=== PATIENT | male | born 1955 | race Caucasian/White ===

== ENCOUNTER → 2017-09-21 | Outpatient (CLI) | payer OTHER | LOC: BMCIMAGING 07:16 | PROVIDERS: ATTEND Internal Medicine | DX: N50.3 Cyst of epididymis (principal); N43.3 Hydrocele, unspecified ==

== ENCOUNTER → 2018-07-26 | Outpatient (CLI) | payer OTHER | LOC: FIMAGING 07:28 | PROVIDERS: ATTEND Radiology Diagnostic Radiology | DX: I83.91 Asymptomatic varicose veins of right lower extremity (principal); S79.921A Unspecified injury of right thigh, initial encounter ==

== ENCOUNTER 2018-09-06 07:43 | Day surgery (SDC) | payer OTHER ==
[2018-09-06] MEDS ORDERED: ceFAZolin 2 GM/DEXTROSE 100 ML IV ONE (07:44)
[2018-09-06] MEDS ORDERED: ONDANSETRON 4 MG/2 ML VIAL IVP ONE (07:44)
[2018-09-06] MEDS ORDERED: MIDAZOLAM 2 MG/2 ML VIAL IVP PRN (07:44)
[2018-09-06] MEDS ORDERED: FLUMAZENIL 0.5 MG/5 ML MDV IVP PRN (07:44)
[2018-09-06] MEDS ORDERED: NS 1,000 ML IV ONE (07:44)
[2018-09-06] MEDS ORDERED: MEPERIDINE 25 MG/ML SYR IVP PRN (07:44)
[2018-09-06] MEDS ORDERED: fentaNYL 100 MCG/2 ML INJ IVP PRN (07:44)
[2018-09-06] MEDS ORDERED: NALOXONE HCL 0.4 MG/ML INJ IVP PRN (07:44)
[2018-09-06] MEDS ORDERED: LIDO/EPI 1% **for epidural** 30 ML SDV ONE (07:54)
[2018-09-06] MEDS ORDERED: SODIUM TETRADECYL SULFATE 3% 2 ML VIAL IV ONE (07:54)
[2018-09-06] MEDS ORDERED: NA BICARBONATE 50 MEQ/50 ML VIAL ONE (07:54)
--- NOTE | 2018-09-06 09:15 | PDPROPOC ---
Sedation Plan of Care Sedation Plan of Care: vital signs stable, mental status noted, patient educated of risks, benefits, alternatives, patient can tolerate sedation ASA Classification: ASA 1 Planned drugs: fentanyl, midazolam Mallampati Score: Class 1 Mallampati Reference Image: Patient passed 3-3-2 rule?: Yes
--- NOTE | 2018-09-06 09:15 | PDGENHP ---
History & Physical Chief Complaint: RT LE VARICOSE VEINS History of Present Illness: h/o previous trauma. 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 Pertinent Past, Social, Family History: hernia repair, knee surgery Relevant Physical Exam: bilateral inguinal scars. large ropey varicose veins mapped in RT LE. Cardiorespiratory Assessment: RRR, CTA
[2018-09-06] MEDS ORDERED: ONDANSETRON 4 MG/2 ML VIAL IVP PRN (10:42)
[2018-09-06] MEDS ORDERED: HYDROCODONE/APAP 5/325 TAB PO PRN (10:42)
[2018-09-06] MEDS ORDERED: ONDANSETRON DISINTEGRATING 4 MG TAB PO PRN (10:42)
[2018-09-06] MEDS ORDERED: IBUPROFEN 200 MG TAB PO ONE (10:42)
[2018-09-06] MEDS ORDERED: NS 1,000 ML IV SCH (10:45)
--- NOTE | 2018-09-06 11:18 | PDRADPN ---
Radiology Procedure Note Date of Procedure: 09/06/18 Radiologist: Kathleen Watson Anesthesia: IV Sedation Pre-op Diagnosis: RLE VARICOSE VEINS Post-op Diagnosis: SAME Indication: PAIN AND SWELLING Procedure: ABLATION, PHLEBECTOMY, SCLEROTHERAPY Inf/Abcess present in the surg proc area at time of surgery?: No
[2018-09-06 14:50] VITALS: BP 87/61
== END 2018-09-06 14:45 | disposition home or self-care (01) ==
LOC: FIMAGING 07:43
PROVIDERS: ATTEND Radiology Diagnostic Radiology
DX: I83.811 Varicose veins of right lower extremity with pain (principal); I83.891 Varicose veins of right lower extremity with other complications
CPT/HCPCS: J0690; J2250; J2310; J3010

== ENCOUNTER → 2018-10-01 | Outpatient (CLI) | payer OTHER | LOC: FIMAGING 15:59 ==